=== PATIENT | female | born 1970 | race Caucasian/White ===

== ENCOUNTER → 2016-08-20 | Outpatient (CLI) | payer OTHER | LOC: ECHO 11:23 | DX: R00.2 Palpitations (principal); R06.00 Dyspnea, unspecified; R07.9 Chest pain, unspecified; F17.200 Nicotine dependence, unspecified, uncomplicated | CPT/HCPCS: ECHO; 93306 ==

== ENCOUNTER 2016-09-09 14:51 | Emergency (ER) | payer OTHER | END 2016-09-09 18:30 | disposition home or self-care (01) | LOC: ER1 14:51 | DX: G43.909 Migraine, unspecified, not intractable, without status migrainosus (principal); F43.10 Post-traumatic stress disorder, unspecified; F17.210 Nicotine dependence, cigarettes, uncomplicated; Z79.899 Other long term (current) drug therapy | CPT/HCPCS: 96374; 96375; 99283; J1200; J1885; J2765 ==

== ENCOUNTER 2016-10-10 20:50 | Emergency (ER) | payer OTHER | END 2016-10-10 21:49 | disposition home or self-care (01) | LOC: ER1 20:50 | DX: K04.7 Periapical abscess without sinus (principal); F17.210 Nicotine dependence, cigarettes, uncomplicated; I10 Essential (primary) hypertension; Z79.899 Other long term (current) drug therapy | CPT/HCPCS: 96372; 99283 ==

== ENCOUNTER 2016-10-24 12:27 | Emergency (ER) | payer OTHER | END 2016-10-24 15:05 | disposition home or self-care (01) | LOC: ER1 12:27 | DX: G43.909 Migraine, unspecified, not intractable, without status migrainosus (principal); F43.10 Post-traumatic stress disorder, unspecified; I10 Essential (primary) hypertension; F17.210 Nicotine dependence, cigarettes, uncomplicated; Z98.51 Tubal ligation status; Z88.8 Allergy status to other drugs, medicaments and biological substances; Z79.899 Other long term (current) drug therapy | CPT/HCPCS: 70450; 96361; 96374; 96375; 99283; J1200; J1885; J2765; J7030 ==

== ENCOUNTER 2021-02-03 14:29 | Emergency (ER) | payer OTHER ==
[~2021-02-03 14:29] MED LIST: BENTYL 10MG CAP10 MG PO; TESSALON PERLE100 MG PO; ZITHROMAX250 MG PO; ZOFRAN4 MG PO
== END 2021-02-03 15:54 | disposition left against medical advice (07) ==
LOC: ER1 14:29
DX: Z53.21 Procedure and treatment not carried out due to patient leaving prior to being seen by health care provider (principal)

== ENCOUNTER 2021-08-17 17:17 | Emergency (ER) | payer OTHER | END 2021-08-17 20:25 | disposition home or self-care (01) | LOC: ER1 17:17 | DX: G43.909 Migraine, unspecified, not intractable, without status migrainosus (principal); F17.200 Nicotine dependence, unspecified, uncomplicated; Z90.49 Acquired absence of other specified parts of digestive tract | CPT/HCPCS: 96374; 96375; 99283; J1200; J1885; J2765 ==